=== PATIENT | female | born 1960 | race Caucasian/White ===

== ENCOUNTER → 2016-09-13 | Outpatient (CLI) | payer MEDICAID ==
--- NOTE | 2016-09-13 18:32 | RADIOLOGY REPORT (SQ) ---
EXAM DESCRIPTION: ANKLE LEFT COMPLETE COMPLETED DATE/TIME: 09/13/2016 6:17 pm REASON FOR STUDY: SPRAIN OF LEFT ANKLE,UNSPECIFIED LIGAMENT,SUBSEQUENT ENCOUNTER COMPARISON: None. NUMBER OF VIEWS: Three views. TECHNIQUE: AP, lateral, and oblique radiographic images acquired of the left ankle. LIMITATIONS: None. FINDINGS: MINERALIZATION: Normal. BONES: No acute fracture or dislocation. No worrisome bone lesions. JOINTS: No effusions. SOFT TISSUES: No soft tissue swelling. No foreign body. OTHER: No other significant finding. IMPRESSION: NEGATIVE STUDY OF THE LEFT ANKLE. NO RADIOGRAPHIC EVIDENCE OF ACUTE INJURY. TECHNICAL DOCUMENTATION: JOB ID: [id number] [employer]- All Rights Reserved
== END ==
LOC: RAD 17:58
PROVIDERS: ATTEND Nurse Practitioner Acute Care
DX: S93.402D Sprain of unspecified ligament of left ankle, subsequent encounter (principal); X58.XXXD Exposure to other specified factors, subsequent encounter

== ENCOUNTER 2018-03-27 11:32 | Emergency (ER) | payer SELFPAY ==
[2018-03-27 12:00] VITALS: BP 161/89
--- NOTE | 2018-03-27 12:01 | EKG REPORT ---
SEVERITY:- NORMAL ECG - SINUS RHYTHM : Confirmed by: Marquis Noe 27-Mar-2018 12:00:28
[2018-03-27] MEDS ORDERED: KETOROLAC TROMETHAMINE 60 MG/2 ML SDV IM ONE (12:14)
--- NOTE | 2018-03-27 12:25 | ER Document Report ---
ED General - General Chief Complaint: Chest Pain > 30 Stated Complaint: BODY ACHES, ARM NUMBNESS, BACK PAIN Time Seen by Provider: 03/27/18 12:06 Mode of Arrival: Ambulatory Information source: Patient Notes: Chief complaint: Left shoulder pain History of complain:( obtained from----patient) 58 years old female woke up this morning with left upper back left shoulder left arm pain and left side of the neck pain. Each time she moves her arm or shoulder the pain is increased in intensity. No nausea vomiting palpitation or diaphoresis. Onset: As above Duration: Since this morning Severity: Moderate Quality: Sharp Context: Possible sprain, she works in a cafeteria and lifting heavy objects Exacerbating factor and relieving factors: Change of position REVIEW OF SYSTEMS: CONSTITUTIONAL : Denies fever, chills, or sweats. Denies recent illness. EENT: Denies eye, ear, throat, or mouth pain or symptoms. Denies nasal or sinus congestion or discharge. Denies throat, tongue, or mouth swelling or difficulty swallowing. CARDIOVASCULAR: Denies chest pain. Denies palpitations or racing or irregular heart beat. Denies ankle edema. RESPIRATORY: Denies cough, cold, or chest congestion. Denies shortness of breath, difficulty breathing, or wheezing. GASTROINTESTINAL: Denies distention. Denies nausea, vomiting, or diarrhea. Denies blood in vomitus, stools, or per rectum. Denies black, tarry stools. Denies constipation. GENITOURINARY: Denies difficulty urinating, painful urination, burning, frequency, blood in urine, or discharge. FEMALE GENITOURINARY: Denies vaginal bleeding, heavy or abnormal periods, irregular periods. Denies vaginal discharge or odor. MUSCULOSKELETAL: Denies back or neck pain or stiffness. Denies joint pain or swelling. SKIN: Denies rash, lesions or sores. HEMATOLOGIC : Denies easy bruising or bleeding. LYMPHATIC: Denies swollen, enlarged glands. NEUROLOGICAL: Denies confusion or altered mental status. Denies passing out or loss of consciousness. Denies dizziness or lightheadedness. Denies headache. Denies weakness or paralysis or loss of use of either side. Denies problems with gait or speech. Denies sensory loss, numbness, or tingling. Denies seizures. PSYCHIATRIC: Denies anxiety or stress. Denies depression, suicidal ideation, or homicidal ideation. ALL OTHER SYSTEMS REVIEWED AND NEGATIVE. PHYSICAL EXAMINATION: GENERAL: Well-appearing, well-nourished and in no acute distress. Obesity HEAD: Atraumatic, normocephalic. EYES: Pupils equal round and reactive to light, extraocular movements intact, conjunctiva are normal. ENT: Nares patent, oropharynx clear without exudates. Moist mucous membranes. NECK: Normal range of motion, supple without lymphadenopathy LUNGS: Breath sounds clear to auscultation bilaterally and equal. No wheezes rales or rhonchi. HEART: Regular rate and rhythm without murmurs ABDOMEN: Soft, nontender, nondistended abdomen. No guarding, no rebound. No masses appreciated. Examination of genitals-deferred Musculoskeletal: Sharp tenderness over the trapezius muscles and left sternocleidomastoid muscles noted. NEUROLOGICAL: Cranial nerves grossly intact. Normal speech, normal gait. Normal sensory, motor exams PSYCH: Normal mood, normal affect. SKIN: Warm, Dry, normal turgor, no rashes or lesions noted. Dictation was performed using [employer] voice recognition software TRAVEL OUTSIDE OF THE [place] IN LAST 30 DAYS: No - HPI Onset: Just prior to arrival Notes: Dictated - Related Data Allergies/Adverse Reactions: No Known Allergies Allergy (Verified 03/27/18 12:05) Past Medical History - Social History Smoking Status: Never Smoker Cigarette use (# per day): No Chew tobacco use (# tins/day): No Smoking Education Provided: No Frequency of alcohol use: Rare Drug Abuse: None Lives with: Family - No Family History: Reviewed & Not Pertinent - Past Medical History Cardiac Medical History: Reports: Hx Hypertension Endocrine Medical History: Reports: Hx Hypothyroidism Psychiatric Medical History: Reports: Hx Depression Past Surgical History: Reports: Hx Orthopedic Surgery - lumbar - Immunizations Hx Diphtheria, Pertussis, Tetanus Vaccination: Yes Review of Systems - Review of Systems Notes: Dictated Physical Exam - Vital signs Vitals: Temp Pulse Resp BP Pulse Ox 98.5 F 75 16 161/89 H 100 03/27/18 11:56 03/27/18 11:56 03/27/18 11:56 03/27/18 11:56 03/27/18 11:56 - Notes Notes: Dictated Course - Re-evaluation Re-evalutation: 03/27/18 12:23 Given IM Toradol - Vital Signs Vital signs: Temp Pulse Resp BP Pulse Ox 98.5 F 75 16 161/89 H 100 03/27/18 11:56 03/27/18 11:56 03/27/18 11:56 03/27/18 11:56 03/27/18 11:56 Discharge - Discharge Clinical Impression: Trapezius strain Qualifiers: Encounter type: initial encounter Laterality: left Qualified Code(s): S46.812A - Strain of other muscles, fascia and tendons at shoulder and upper arm level, left arm, initial encounter Condition: Fair Disposition: HOME, SELF-CARE Instructions: Sprain ([facility]) Prescriptions: Diazepam [Valium 2 mg Tablet] 2 mg PO BID #15 tablet Naproxen Sodium [Naproxen Sodium ER] 500 mg PO BID #30 tablet.sa Forms: Return to Work Referrals: KUNAL MANDUJANO MD [Primary Care Provider] - Follow up as needed
== END 2018-03-27 12:35 | disposition home or self-care (01) ==
LOC: ER 11:32
DX: S29.012A Strain of muscle and tendon of back wall of thorax, initial encounter (principal); X58.XXXA Exposure to other specified factors, initial encounter; M54.89 Other dorsalgia; M25.512 Pain in left shoulder; M54.2 Cervicalgia; I10 Essential (primary) hypertension; M79.602 Pain in left arm; E66.9 Obesity, unspecified
CPT/HCPCS: 93005; 99283; 93010; J1885

== ENCOUNTER 2019-10-02 22:59 | Emergency (ER) | payer OTHER ==
--- NOTE | 2019-10-02 23:11 | ER Document Report ---
HPI - HPI Patient complains to provider of: Right foot Time Seen by Provider: 10/02/19 23:09 Onset: Just prior to arrival Associated Symptoms: None Notes: This 59-year-old female presents to the emergency room today stating that she tripped while drying out the lawnmower at her house today. She has discomfort to the right foot and right ankle. Past Medical History - General Information source: Patient - Social History Smoking Status: Never Smoker Cigarette use (# per day): No Chew tobacco use (# tins/day): No Smoking Education Provided: No Frequency of alcohol use: None Drug Abuse: None Family History: Reviewed & Not Pertinent - Past Medical History Cardiac Medical History: Reports: Hx Hypertension Endocrine Medical History: Reports: Hx Hypothyroidism Renal/ Medical History: Denies: Hx Peritoneal Dialysis Psychiatric Medical History: Reports: Hx Depression Past Surgical History: Reports: Hx Section, Hx Orthopedic Surgery - lumbar - Immunizations Hx Diphtheria, Pertussis, Tetanus Vaccination: Yes Vertical Provider Document - CONSTITUTIONAL Agree With Documented VS: Yes - INFECTION CONTROL TRAVEL OUTSIDE OF THE [place] IN LAST 30 DAYS: No - HEENT HEENT: Atraumatic, Conjuctival Injection, Normocephalic, PERRLA - NECK Neck: Normal Inspection - RESPIRATORY Respiratory: Breath Sounds Normal, No Respiratory Distress - CARDIOVASCULAR Cardiovascular: Regular Rate, Regular Rhythm - GI/ABDOMEN Gastrointestinal: Abdomen Soft, Abdomen Non-Tender - REPRODUCTIVE Female Genitalia: Normal Inspection - BACK Back: Normal Inspection - MUSCULOSKELETAL/EXTREMETIES Musculoskeletal/Extremeties: MAEW Course - Re-evaluation Re-evalutation: 10/02/19 23:49 Good distal pulses rapid capillary refill patient was placed in a splint for comfort and provided crutches for ambulation. - Vital Signs Vital signs: Temp Pulse Resp BP Pulse Ox 99.3 F 64 20 148/66 H 97 10/02/19 23:05 10/02/19 23:05 10/02/19 23:05 10/02/19 23:05 10/02/19 23:05 - Diagnostic Test Radiology results interpreted by me: 10/02/19 23:49 Ankle X-Ray 10/02/19 23:09 IMPRESSION: No acute fracture is identified. Foot X-Ray 10/02/19 23:09 IMPRESSION: No acute fracture or dislocation is identified. Procedures - Immobilization Right Ankle Immobilizer type: Ankle stirrup, Crutches Performed by: JOANNE Post-Proc Neuro Vasc Exam: Normal Alignment checked and good: Yes Discharge - Discharge Clinical Impression: Right foot strain Right ankle strain Qualifiers: Encounter type: initial encounter Qualified Code(s): S96.911A - Strain of unspecified muscle and tendon at ankle and foot level, right foot, initial encounter Disposition: HOME, SELF-CARE Instructions: Tendon Strain ([facility]), Sprained Ankle ([facility]) Additional Instructions: Ankle Stirrup Splint You are to use an ankle brace called a stirrup splint. This type of brace allows you to place greater stresses on the ankle without risk of re-injury, and is often used for more severe ankle injuries such as avulsion fractures and ligament ruptures. The splint can be worn over a sock or tape. For proper support, wear the splint with a shoe over it. It's important that the splint fit properly. Adjust the heel tension, if needed. If your splint has air bladders, peel back the bottom of each air bladder, then move the Velcro attachment of the heel strap up or down. Air bladder pressure can be adjusted by pulling up the valve at the top, threading the air tube down into the main bladder, then blowing air into the bladder or squeezing it out. The two sides of the stirrup can be moved forward or back on your ankle by changing the attachment of the main straps. If you are unable to use the ankle comfortably in the splint, return for re-evaluation. Prescriptions: Ibuprofen [Motrin 600 Mg Tablet] 600 mg PO TID #15 tablet Referrals: KUNAL MANDUJANO MD [Primary Care Provider] - Follow up as needed
--- NOTE | 2019-10-02 23:45 | RADIOLOGY REPORT (SQ) ---
EXAM DESCRIPTION: XR ANKLE 3 OR MORE VIEWS COMPLETED DATE/TME: 10/02/2019 23:09 CLINICAL HISTORY: 59 years Female ,pain COMPARISON: None. TECHNIQUE: Right ankle, 3 view FINDINGS: No acute fractures or dislocations are identified. No osseous destructive lesions. No ankle joint effusion noted. Large calcaneal spur. Spurring along the navicular. IMPRESSION: No acute fracture is identified.
--- NOTE | 2019-10-02 23:46 | RADIOLOGY REPORT (SQ) ---
EXAM DESCRIPTION: XR FOOT 3 OR MORE VIEWS COMPLETED DATE/TME: 10/02/2019 23:09 CLINICAL HISTORY: 59 years ,Female pain COMPARISON: None. TECHNIQUE: RIGHT foot, Three view FINDINGS: No acute fractures or dislocations are identified. No osseous destructive lesions. No radiopaque foreign object noted. No significant ankle effusion noted. IMPRESSION: No acute fracture or dislocation is identified.
[2019-10-03 00:19] VITALS: BP 134/70
== END 2019-10-03 00:17 | disposition home or self-care (01) ==
LOC: ER 22:59
PROC: 2W3QX1Z Immobilization of Right Lower Leg using Splint (ICD-10-PCS; principal; 2019-10-02)
DX: S96.911A Strain of unspecified muscle and tendon at ankle and foot level, right foot, initial encounter (principal); M79.671 Pain in right foot; W18.09XA Striking against other object with subsequent fall, initial encounter; Y93.H9 Activity, other involving exterior property and land maintenance, building and construction; I10 Essential (primary) hypertension
CPT/HCPCS: 99283

== ENCOUNTER 2020-05-15 12:27 | Emergency (ER) | payer OTHER ==
--- NOTE | 2020-05-15 12:45 | ER Document Report ---
ED Medical Screen (RME) - General Chief Complaint: Chest Pain Stated Complaint: CHEST PAIN/BACK PAIN/ARM PAIN Time Seen by Provider: 05/15/20 12:43 Primary Care Provider: KUNAL MANDUJANO MD [Primary Care Provider] - Follow up as needed Notes: HPI: 60-year-old female with history of hypertension high cholesterol and thyroid issues presenting for chest pain with radiation to the neck and arms over the last 2 to 3 days. Began with arm pain 3 days ago now with anterior chest pain and back pain. Reports shortness of breath with discomfort with deep breathing. Never had a stress test. PHYSICAL EXAMINATION: Lung sounds are clear to auscultation regular rate and rhythm. Patient is very anxious I have greeted and performed a rapid initial assessment of this patient. A comprehensive ED assessment and evaluation of the patient, analysis of test results and completion of medical decision making process will be conducted by an additional ED providers. Please note that clinical decision making for this patient was made during the 2019 pandemic of novel coronavirus which caused a significant strain on the healthcare system including at this particular facility. Criteria for admission discharge and level of care decisions as well as treatment decisions have necessarily changed - Related Data Allergies/Adverse Reactions: No Known Allergies Allergy (Verified 10/02/19 23:08) Past Medical History - Social History Frequency of alcohol use: None Drug Abuse: None - Past Medical History Cardiac Medical History: Reports: Hx Hypertension Endocrine Medical History: Reports: Hx Hypothyroidism Renal/ Medical History: Denies: Hx Peritoneal Dialysis Psychiatric Medical History: Reports: Hx Depression Past Surgical History: Reports: Hx Section, Hx Orthopedic Surgery - lumbar - Immunizations Hx Diphtheria, Pertussis, Tetanus Vaccination: Yes Doctor's Discharge - Discharge Referrals: KUNAL MANDUJANO MD [Primary Care Provider] - Follow up as needed
[2020-05-15 13:04] LABS: ABSOLUTE BASOPHILS # (AUTO) 0.1 10^3/uL (0.0-0.2); ABSOLUTE EOSINOPHILS # (AUTO) 0.1 10^3/uL (0.0-0.6); ABSOLUTE LYMPHOCYTES (AUTO) 1.6 10^3/uL (0.5-4.7); ABSOLUTE MONOCYTES (AUTO) 0.4 10^3/uL (0.1-1.4); ABSOLUTE NEUT (AUTO) 2.8 10^3/uL (1.7-8.2); BASOPHILS % (AUTO) 1.1 % (0-2); HEMATOCRIT 40.7 % (36.0-47.0); HEMOGLOBIN 13.9 g/dL (12.0-15.5); LYMPHOCYTES % (AUTO) 32.4 % (13-45); MEAN CORPUSCULAR HEMOGLOBIN 30.5 pg (27.0-33.4); MEAN CORPUSCULAR HGB CONC 34.1 g/dL (32.0-36.0); MEAN CORPUSCULAR VOLUME 90 fl (80-97); MONOCYTES % (AUTO) 7.4 % (3-13); PLATELET COUNT 187 10^3/uL (150-450); RED BLOOD COUNT 4.55 10^6/uL (3.72-5.28); RED CELL DISTRIBUTION WIDTH 12.7 % (11.5-14.0); SEGMENTED NEUTROPHILS % (AUTO) 56.1 % (42-78); TOTAL CELLS COUNTED % (AUTO) 100 %
[2020-05-15 13:13] LABS: INTERNATIONAL RATION (INR) 0.86; PROTHROMBIN TIME 11.9 SEC (11.4-15.4)
[2020-05-15 13:21] LABS: ALBUMIN 3.7 g/dL (3.5-5.0); ALKALINE PHOSPHATASE 34 U/L (38-126); ANION GAP 5 (5-19); ASPARTATE AMINO TRANSFERASE 21 U/L (14-36); BILIRUBIN,DIRECT 0.2 mg/dL (0.0-0.4); BILIRUBIN,TOTAL 0.6 mg/dL (0.2-1.3); BLOOD UREA NITROGEN 17 mg/dL (7-20); CARBON DIOXIDE 34 mmol/L (22-30); CHLORIDE 102 mmol/L (98-107); GLUCOSE 112 mg/dL (75-110); POTASSIUM 3.7 mmol/L (3.6-5.0); TOTAL PROTEIN 6.5 g/dL (6.3-8.2)
--- NOTE | 2020-05-15 13:56 | ER Document Report ---
ED General - General Chief Complaint: Chest Pain Stated Complaint: CHEST PAIN/BACK PAIN/ARM PAIN Time Seen by Provider: 05/15/20 12:43 Primary Care Provider: KUNAL MANDUJANO MD [ACTIVE STAFF] - Follow up as needed BEVERLY FERGUSON MD [ACTIVE PROVISIONAL STAFF] - Follow up as needed - [facility] Notes: 61-year-old female with a history of hypertension, hyperlipidemia and hypothyroidism presents to the emergency room today for complaints of bilateral chest pain that started 2 nights ago, neck pain, back pain that radiated to her left arm. Patient reports shortness of breath with deep breathing. 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 She reports the pain is worse with movement, better at rest. Has not tried any [id number] medications for her pain. Patient has a history of arthritis and trigger finger in her bilateral hands. She typically does get cortisone shots every 3 months but having last year due to [place] pandemic. Patient is a been on smoker, she states she was a former smoker years ago. Mother has a history of DC with triple bypass 9 years ago, father did pass from dementia no cardiac issues. Patient reports pain was worse this morning. States it is a dull throbbing pain. Has not tried any heat, ice, ibuprofen or Tylenol. Denies fevers, chills, palpitations, shortness of breath, dyspnea, nausea, vomiting, diarrhea, abdominal pain, hematuria,blurred vision, double vision, loss of vision, speech changes, LH, dizziness, syncope, headaches, wheezing, ST, URI, neck pain, weakness, bowel or bladder dysfunction, saddle anesthesia, numbness or tingling in bilateral upper or lower extremities equally, muscle paralysis, weakness in bilateral upper or lower extremities equally or rash. Denies IV drug use. - Related Data Allergies/Adverse Reactions: No Known Allergies Allergy (Verified 10/02/19 23:08) Past Medical History - General Information source: Patient - Social History Smoking Status: Former Smoker Frequency of alcohol use: None Drug Abuse: None Family History: Reviewed & Not Pertinent - Past Medical History Cardiac Medical History: Reports: Hx Hypertension Endocrine Medical History: Reports: Hx Hypothyroidism Renal/ Medical History: Denies: Hx Peritoneal Dialysis Psychiatric Medical History: Reports: Hx Depression Past Surgical History: Reports: Hx Section, Hx Orthopedic Surgery - lumbar - Immunizations Hx Diphtheria, Pertussis, Tetanus Vaccination: Yes Review of Systems - Review of Systems Constitutional: No symptoms reported EENT: No symptoms reported Cardiovascular: Chest pain Respiratory: No symptoms reported Gastrointestinal: No symptoms reported Genitourinary: No symptoms reported Female Genitourinary: No symptoms reported Musculoskeletal: Muscle pain, Muscle stiffness Skin: No symptoms reported Hematologic/Lymphatic: No symptoms reported Neurological/Psychological: No symptoms reported Physical Exam - Vital signs Vitals: Temp Pulse Resp BP Pulse Ox 98.3 F 64 20 150/66 H 100 05/15/20 12:38 05/15/20 12:38 05/15/20 12:38 05/15/20 12:38 05/15/20 12:38 - Notes Notes: MEDICATIONS: I agree with the patient medications as charted by the RN. ALLERGIES: I agree with the allergies as charted by the RN. PAST MEDICAL HISTORY/PAST SURGICAL HISTORY: Reviewed and agree as charted by RN. SOCIAL HISTORY: Reviewed and agree as charted by RN. FAMILY HISTORY: No significant familial comorbid conditions directly related to patient complaint EXAM: Reviewed vital signs as charted by RN. PHYSICAL EXAMINATION: reviewed vital signs by RN GENERAL: Well-appearing, well-nourished and in no acute distress. HEAD: Atraumatic, normocephalic. EYES: Pupils equal round and reactive to light, extraocular movements intact, conjunctiva are normal. ENT: Nares patent, oropharynx clear without exudates. Moist mucous membranes. NECK: Normal range of motion, supple without lymphadenopathy. Left-sided trapezius pain on palpation. LUNGS: Breath sounds clear to auscultation bilaterally and equal. No wheezes rales or rhonchi. HEART: Regular rate and rhythm without murmurs. Able to reproduce chest pain on palpation not brought patient to the emergency room. ABDOMEN: Soft, nontender, nondistended abdomen. No guarding, no rebound. No masses appreciated. Female : deferred Musculoskeletal: Normal range of motion, no pitting or edema. No cyanosis. NEUROLOGICAL: Cranial nerves grossly intact. Normal speech, normal gait. Normal sensory, motor exams PSYCH: Normal mood, normal affect. SKIN: Warm, Dry, normal turgor, no rashes or lesions noted. Course - Re-evaluation Re-evalutation: 05/15/20 15:42 Afebrile, vital stable no distress. Nurses notes reviewed. CBC negative for leukocytosis or anemia. CMP negative for hepatic or renal dysfunction, no electrolyte disturbances. Troponin less than 0.012. Chest x-ray unremarkable. I was able to reproduce the chest pain that brought patient to the emergency ro om. Patient states that she has been heavy lifting a lot of heavy objects while at work, she is right-hand dominant so she typically carries in her left and does tasks with her right. When palpating her neck and her left arm, patient grimacing with pain and wincing. She did confirm that this is the pain that she was experiencing. Reports that her did pass away 10 months ago suddenly, her family was nervous and they did want to have her evaluated for her cardiac work-up. Patient reports she is never had a stress test. Presentation of chest pain in an otherwise well appearing patient. Low clinical suspicion for ACS given clinical history, exam, EKG without ST elevations or depressions, and negative initial troponin. second troponin was less than 0.012 HEART score less than or equal to 3. PE also seems unlikely given clinical history, absence of tachycardia or dyspnea. Patient is PERC criteria negative. CXR without evidence of pneumothorax or pneumonia. No widened mediastinum. Aortic dissection also seems unlikely given history, symmetric pulses, CXR, and vitals. HEART Score: History; pain worse with movement, after lifting heavy objects, reproducible pain on palpation of chest wall, left arm and neck. 0 ECG; negative for STEMI, no ST segment elevations 0 Age; she does get +1 for her age Risk Factors: Pretension, hyperlipidemia, obesity, family with CVD, +2 Troponin: negative Total: 3 Patient with a score of 3 has a 0.9 to 1.7% risk of adverse cardiac event. Patient has acute costochondritis. Advised to use muscle relaxers and anti- inflammatories as directed. Apply heat 20 minutes on 20 minutes off several times a day. Work note has been given. Advised to avoid lifting heavy objects. Follow-up with primary care provider within the next week, referral has been given to hunter as needed. After performing a Medical Screening Examination, I estimate there is LOW risk for RUPTURED ESOPHAGUS, PNEUMOTHORAX, PULMONARY EMBOLISM, ACUTE CORONARY SYNDROME, OR THORACIC AORTIC DISSECTION, thus I consider the discharge disposition reasonable. I have reevaluated this patient multiple times and no significant life threatening changes are noted. The patient and I have discussed the diagnosis and risks, and we agree with discharging home with close follow-up. We also discussed returning to the Emergency Department immediately if new or worsening symptoms occur. We have discussed the symptoms which are most concerning (e.g., bloody sputum, worsening pain or shortness of breath) that necessitate immediate return. 05/15/20 17:56 - Vital Signs Vital signs: Temp Pulse Resp BP Pulse Ox 98.3 F 64 16 136/73 H 96 05/15/20 12:38 05/15/20 12:38 05/15/20 16:01 05/15/20 16:01 05/15/20 16:01 - Laboratory Results Result Diagrams: 05/15/20 12:45 05/15/20 12:45 Laboratory Results Interpreted: 05/15/20 12:45 Carbon Dioxide 34 H Glucose 112 H Alkaline Phosphatase 34 L Critical Laboratory Results Reviewed: No Critical Results - Radiology Results Critical Radiology Results Reviewed: No Critical Results Discharge - Discharge Clinical Impression: Acute costochondritis Condition: Stable Disposition: HOME, SELF-CARE Instructions: Chest Wall Pain ([facility]), Costochondritis ([facility]) Additional Instructions: Both of your troponins today were negative, he been having chest pain over the last 3 days. I was able to reproduce it with palpation of your chest wall as well as your neck and your arm. I do believe this is from you lifting heavy objects while you are at work. I did prescribe you muscle relaxers as well as anti-inflammatories. Advised apply heat 20 minutes on 20 minutes off several times a day. I have given you a work note to be out of work for the next couple of days, please make sure you rest, stay hydrated with water, avoid any sodas or coffees this is can dehydrate you. Make sure you are moving around so you do not have any contractures. If you have persistent pain, it is advised that you do follow-up with your primary care provider. I also did refer you to a hunter if you do have chest pain that lingers after taking your med ication. Return immediately for any new or worsening symptoms. Follow up with primary care provider, call tomorrow to make followup appointment. Prescriptions: Naproxen 500 mg PO BID #10 tablet Methocarbamol [Robaxin 500 mg Tablet] 500 mg PO QID PRN #15 tablet PRN Reason: Forms: Return to Work Referrals: KUNAL MANDUJANO MD [ACTIVE STAFF] - Follow up as needed BEVERLY FERGUSON MD [ACTIVE PROVISIONAL STAFF] - Follow up as needed
--- NOTE | 2020-05-15 14:41 | RADIOLOGY REPORT (SQ) ---
EXAM DESCRIPTION: CHEST SINGLE VIEW IMAGES COMPLETED DATE/TIME: 05/15/2020 1:17 pm REASON FOR STUDY: chest pain. COMPARISON: None. EXAM PARAMETERS: NUMBER OF VIEWS: One view. TECHNIQUE: Single frontal radiographic view of the chest acquired. RADIATION DOSE: NA LIMITATIONS: None. FINDINGS: LUNGS AND PLEURA: No opacities, masses or pneumothorax. No pleural effusion. MEDIASTINUM AND HILAR STRUCTURES: No masses. Contour normal. HEART AND VASCULAR STRUCTURES: Heart normal in size. Normal vasculature. BONES: No acute findings. HARDWARE: None in the chest. OTHER: No other significant finding. IMPRESSION: NO ACUTE RADIOGRAPHIC FINDING IN THE CHEST. TECHNICAL DOCUMENTATION: JOB ID: [id number] [employer]- All Rights Reserved Reading location - IP/workstation name: [email or web address]
[2020-05-15] MEDS ORDERED: IBUPROFEN 800 MG TABLET PO ONE (15:46)
[2020-05-15 18:04] VITALS: BP 145/73
--- NOTE | 2020-05-15 22:42 | EKG REPORT ---
SEVERITY:- ABNORMAL ECG - SINUS RHYTHM PROBABLE LVH WITH SECONDARY REPOL ABNRM : Confirmed by: Ben Salmeron MD 15-May-2020 22:41:51
--- OUTSIDE RECORDS SUMMARY | 2020-05-18 10:27 | XMS REPORT ---
:1960 [facility] [address] [place] [address] Care Team Providers Name Role Phone Elizabeth BUCHANAN Attending Clinician Unavailable Aaron Attending Clinician Unavailable Sacha Attending Clinician Unavailable Jan Pelayo Attending Clinician Unavailable Allergies, Adverse Reactions, Alerts Allergy Allergy Status Severity Reaction(s) Onset Inactive Treating C omments Name Type Date Date Clinician LATEX Drug Active U Rash 2017-04 allergy 00:00:0 0 Medications Ordered Filled Start Stop Current Ordering Indication Dosage Frequency Signature Comments Components Medication Medication Date Date Medication? Clinician (SIG) Name Name atenolol 50 No 1 Q1D atenolol mg tablet 50 mg Take 1 tablet tablet Take 1 every day tablet by oral every day route. by oral route. hydrochloro No 1 Q1D hydrochlor thiazide 25 othiazide mg tablet 25 mg Take 1 tablet tablet Take 1 every day tablet by oral every day route. by oral route. ibuprofen No 1 TID ibuprofen 800 mg 800 mg tablet Take tablet 1 tablet 3 Take 1 times a day tablet 3 by oral times a route as day by needed. oral route as needed. Pain Relief No 2 Q4H Pain (acetaminop Relief hen) 500 mg (acetamino tablet Take phen) 500 2 tablets mg tablet every 4 Take 2 hours by tablets oral route every 4 as needed. hours by oral route as needed. Synthroid No Synthroid 150 mcg 150 mcg tablet Take tablet 1 tablet(s) Take 1 every day tablet(s) by oral every day route. by oral route. Zanaflex 4 No 1capsul TID Zanaflex 4 mg capsule e(s) mg capsule Take 1 Take 1 capsule 3 capsule 3 times a day times a by oral day by route as oral route needed. as needed. Zoloft 100 No 1 Q1D Zoloft 100 mg tablet mg tablet Take 1 Take 1 tablet tablet every day every day by oral by oral route. route. celecoxib No 1capsul BID celecoxib 200 mg e(s) 200 mg capsule capsule Take 1 Take 1 capsule capsule twice a day twice a by oral day by route for oral route 30 days. for 30 days. levothyroxi No levothyrox ne 150 mcg ine 150 tablet Take mcg tablet 1 tablet(s) Take 1 every day tablet(s) by oral every day route. by oral route. pravastatin No 1 Q1D pravastati 20 mg n 20 mg tablet Take tablet 1 tablet Take 1 every day tablet by oral every day route for by oral 30 days. route for 30 days. sertraline No sertraline 100 mg 100 mg tablet Take tablet 1 tablet Take 1 every day tablet by oral every day route. by oral route. Problems Condition Condition Condition Status Onset Resolution Last Treatin g Comments Name Details Category Date Date Treatment Clinician Date Hypothyroid Hypothyroid Problem Active ism ism Procedures Procedure Date / Time Performed Performing Clinician Devic e OFFICE/OUTPATIENT VISIT EST 2019-02-03 09:15:00 OFFICE/OUTPATIENT VISIT EST 2017-09-18 10:25:00 OFFICE/OUTPATIENT VISIT EST 2017-08-21 14:30:00 Hand Surgery 2016-11-21 00:00:00 OFFICE/OUTPATIENT VISIT EST 2016-11-02 09:30:00 Lumbar Spine Surgery 2001-04-23 00:00:00 Section 1999-04-23 00:00:00 Results Test Description Test Time Test Comments Text Results Atomic Results Result Comments SARS-CoV-2 RNA Resp Ql SHAE+probe 2020-02-06 00:00:00 Test Item Value Reference Range Comments SARS-CoV-2 RNA Resp Ql SHAE+probe Not detected [facility] Case ID: (test code = 29792-2) [id number] Rapid Strep\S\2019-06-02 15:50:00 Test Item Value Reference Range Comments Rapid Strep (test code = RAPIDSTREP) positive N/A CBC (H/H, RBC, INDICES, WBC, PLT)2019-02-03 09:57:00 Test Item Value Reference Range Comments MPV (test code = 69616544) 10.8 fL 7.5-12.5 RED BLOOD CELL COUNT (test code = 95727920) 4.72 Million/uL 3.80 -5.10 RDW (test code = 32021154) 12.1 % 11.0-15.0 MCH (test code = 34997434) 30.1 pg 27.0-33.0 HEMOGLOBIN (test code = 59865280) 14.2 g/dL 11.7-15.5 WHITE BLOOD CELL COUNT (test code = 3.6 Thousand/uL 3.8-10.8 60843078) HEMATOCRIT (test code = 74685905) 42.7 % 35.0-45.0 PLATELET COUNT (test code = 54060324) 153 Thousand/uL 140-400 MCV (test code = 15286583) 90.5 fL 80.0-100.0 MCHC (test code = 58760707) 33.3 g/dL 32.0-36.0 HEPATIC FUNCTION [id number] 09:57:00 Test Item Value Reference Range Comments ALBUMIN/GLOBULIN RATIO (test code = 1.7 (calc) 1.0-2.5 66172752) AST (test code = 04691850) 27 U/L 10-35 PROTEIN, TOTAL (test code = 52316911) 6.7 g/dL 6.1-8.1 ALT (test code = 52105238) 37 U/L 6-29 BILIRUBIN, INDIRECT (test code = 82079095) 0.3 mg/dL (calc) 0.2- 1.2 GLOBULIN (test code = 30081228) 2.5 g/dL (calc) 1.9-3.7 BILIRUBIN, DIRECT (test code = 54896716) 0.1 mg/dL < OR = 0.2 BILIRUBIN, TOTAL (test code = 73573645) 0.4 mg/dL 0.2-1.2 ALBUMIN (test code = 04877241) 4.2 g/dL 3.6-5.1 ALKALINE PHOSPHATASE (test code = 89501994) 46 U/L 33-1 30 HEMOGLOBIN A1c WITH [id number] 09:57:00 Test Item Value Reference Range Comments HEMOGLOBIN A1c (test code = 05834805) 5.3 % of total Hgb <5.7 eAG (mmol/L) (test code = 88584116) 5.8 (calc) eAG (mg/dL) (test code = 92179351) 105 (calc) COMPREHENSIVE METABOLIC [id number] 09:57:00 Test Item Value Reference Range Comments SODIUM (test code = 09125600) 141 mmol/L 135-146 CHLORIDE (test code = 55847428) 104 mmol/L 98-110 eGFR NON-AFR. URUGUAYAN (test code = 99 mL/min/1.73m2 > OR = 60 46003083) ALBUMIN (test code = 36822360) 4.2 g/dL 3.6-5.1 PROTEIN, TOTAL (test code = 73923563) 6.7 g/dL 6.1-8.1 UREA NITROGEN (BUN) (test code = 10 mg/dL 7-25 50943503) BILIRUBIN, TOTAL (test code = 0.4 mg/dL 0.2-1.2 35273740) eGFR (test code = 115 mL/min/1.73m2 > OR = 60 94841789) CREATININE (test code = 49711511) 0.65 mg/dL 0.50-1.05 POTASSIUM (test code = 51140410) 4.0 mmol/L 3.5-5.3 AST (test code = 20076761) 27 U/L 10-35 GLOBULIN (test code = 75994041) 2.5 g/dL (calc) 1.9-3.7 CALCIUM (test code = 20192816) 9.0 mg/dL 8.6-10.4 CARBON DIOXIDE (test code = 47926435) 30 mmol/L 20-32 ALBUMIN/GLOBULIN RATIO (test code = 1.7 (calc) 1.0-2.5 29433413) ALT (test code = 55522691) 37 U/L 6-29 GLUCOSE (test code = 87576962) 91 mg/dL 65-99 BUN/CREATININE RATIO (test code = NOT APPLICABLE (calc) 6-22 33545312) ALKALINE PHOSPHATASE (test code = 46 U/L 33-130 25572357) LIPID PANEL, [id number] 09:57:00 Test Item Value Reference Range Comments CHOL/HDLC RATIO (test code = 01988926) 4.9 (calc) <5.0 TRIGLYCERIDES (test code = 00979053) 120 mg/dL <150 NON HDL CHOLESTEROL (test code = 60615406) 165 mg/dL (calc) <130 CHOLESTEROL, TOTAL (test code = 36663295) 207 mg/dL <200 HDL CHOLESTEROL (test code = 04127935) 42 mg/dL >50 LDL-CHOLESTEROL (test code = 51205057) 141 mg/dL (calc) HEMOGLOBIN A1c WITH [id number] 15:04:00 Test Item Value Reference Range Comments eAG (mmol/L) (test code = 84874643) 5.8 (calc) eAG (mg/dL) (test code = 86186169) 105 (calc) HEMOGLOBIN A1c (test code = 77734890) 5.3 % of total Hgb <5.7 VITAMIN D,25-OH,TOTAL,[id number] 15:04:0025VITAMIN [id number] 15:04:84791 Rapid Strep\S\2017-01-22 12:35:00 Test Item Value Reference Range Comments Rapid Strep (test code = RAPIDSTREP) negative N/A Hepatitis C Ab w/ Reflex HCVRNA,[id number] 10:19:00 Test Item Value Reference Range Comments Hepatitis C Antibody (test code = 447732) NEGATIVE NEGATI VE Vitamin D, 25-Hydroxy, [id number] 10:19:00 Test Item Value Reference Range Comments Vitamin D (25-Hydroxy) (test code = 008956) 28 ng/mL 30-1 00 CMP with Estimated [id number] 10:19:00 Test Item Value Reference Range Comments BUN (test code = 748373) 16 mg/dL 7-25 ALT/SGPT (test code = 027403) 12 U/L 6-29 Est GFR, NonAfrican Fijian (test code = 525514) 86 mL/min >=60 Total Protein (test code = 660315) 6.6 g/dL 6.1-8.1 Potassium (test code = 436275) 4.0 mmol/L 3.5-5.3 Calcium (test code = 538122) 9.2 mg/dL 8.6-10.4 Creatinine (test code = 776227) 0.78 mg/dL 0.50-1.05 Sodium (test code = 708663) 142 mmol/L 135-146 Glucose (test code = 349534) 102 mg/dL 65-99 Bilirubin, Total (test code = 519966) 0.7 mg/dL 0.2-1.2 Alkaline Phosphatase (test code = 670882) 46 U/L 33-130 Albumin (test code = 675979) 3.8 g/dL 3.6-5.1 AST/SGOT (test code = 074329) 17 U/L 10-35 Est GFR, (test code = 966139) >89 mL/min > =60 Chloride (test code = 306473) 104 mmol/L 98-110 CO2 (test code = 569018) 25 mmol/L 20-31 Lipid [id number] 10:19:00 Test Item Value Reference Range Comments VLDL Cholesterol (Calc) (test code = 094651) 19 mg/dL <30 Triglycerides (test code = 446566) 93 mg/dL <150 Total Chol/HDL Ratio (test code = 614488) 3.6 Ratio <=5.0 Cholesterol (test code = 003493) 166 mg/dL 125-200 LDL Cholesterol (Calc) (test code = 608751) 101 mg/dL <130 HDL Cholesterol (test code = 016676) 46 mg/dL >=46 Hemoglobin A1C\S\2016-05-18 15:45:00 Test Item Value Reference Range Comments HgbA1C, Fingerstick (test code = 4548-4) 5.2 % 4-5.6 Lipid [id number] 09:00:00 Test Item Value Reference Range Comments Total Chol/HDL Ratio (test code = 398016) 3.6 Ratio <=5.0 LDL Cholesterol (Calc) (test code = 170933) 85 mg/dL <130 Cholesterol (test code = 215796) 157 mg/dL 125-200 Triglyceride (test code = 295813) 142 mg/dL <150 VLDL Cholesterol (Calc) (test code = 237913) 28 mg/dL <30 HDL Cholesterol (test code = 110245) 44 mg/dL >=46 Vitamin D, 25-Hydroxy, [id number] 09:00:00 Test Item Value Reference Range Comments Vitamin D (25-Hydroxy) (test code = 650560) 21 ng/mL 30-1 00 CMP with Estimated [id number] 09:00:00 Test Item Value Reference Range Comments ALT/SGPT (test code = 564540) 12 U/L 6-29 Est GFR, NonAfrican Fijian (test code = 257623) >89 mL/min >=60 BUN (test code = 879199) 12 mg/dL 7-25 Chloride (test code = 376243) 102 mmol/L 98-110 Sodium (test code = 671263) 141 mmol/L 135-146 Est GFR, (test code = 801519) >89 mL/min > =60 Albumin (test code = 604901) 3.9 g/dL 3.6-5.1 Bilirubin, Total (test code = 477864) 0.5 mg/dL 0.2-1.2 Creatinine (test code = 397034) 0.72 mg/dL 0.50-1.05 Calcium (test code = 809493) 9.2 mg/dL 8.6-10.4 AST/SGOT (test code = 484985) 13 U/L 10-35 Potassium (test code = 723972) 3.4 mmol/L 3.5-5.3 Total Protein (test code = 520647) 6.3 g/dL 6.1-8.1 Glucose (test code = 233429) 106 mg/dL 65-99 CO2 (test code = 818682) 33 mmol/L 20-31 Alkaline Phosphatase (test code = 955522) 52 U/L 33-130 Rapid Strep\S\2016-04-27 15:15:00 Test Item Value Reference Range Comments Rapid Strep (test code = RAPIDSTREP) negative N/A Assessments Condition Name Status Diagnosis Date Treating Clinici an Hypothyroidism Active 2019-11-04 14:31:22 Body mass index 40+ - severely obese Active 2019-11-07 13:58:58 Trigger finger, unspecified finger Active Essential (primary) hypertension Active Acute upper respiratory infection, Active unspecified Mixed hyperlipidemia Active Hypothyroidism Active 2018-11-01 14:45:55 Body mass index 40+ - severely obese Active 2018-11-01 14:56:35 Acute upper respiratory infection, Active unspecified Acute pharyngitis, unspecified Active Contact w and exposure to oth bact Active communicable diseases Body mass index (BMI) 40.0-44.9, adult Active Vitamin D deficiency, unspecified Active Trigger finger, right ring finger Active Carpal tunnel syndrome, bilateral upper Active limbs Lesion of ulnar nerve, unspecified Active upper limb Essential (primary) hypertension Active Mixed hyperlipidemia Active Vitamin D deficiency, unspecified Active Dorsalgia, unspecified Active Encounters Start End Encounter Admission Attending Care Care Encounter Date/Time Date/Time Type Type Clinicians Facility Department ID 2019-11-07 2019-11-07 Outpatient ANURADHA [facility] [id number] 16:23:00 16:23:00 RADHA 38 2019-11-07 2019-11-07 Radha [place] [id number] 00:00:00 00:00:00 Chanel [facility], [id number] PA-C: [address], [place] [address], Ph. 2019-02-03 2019-02-03 Outpatient Aaron [facility] [id number] 09:15:00 09:15:00 Stormy Children [id number] s [id number] and [id number] [facility], 2018-11-01 2018-11-01 Outpatient YOU BUCHANAN [facility] [id number] 16:23:00 16:23:00 RADHA 26 2018-11-01 2018-11-01 Radha Elizabeth Ewa [place] [id number] 00:00:00 00:00:00 Chanel [facility], [id number] PA-C: [address], [place] [address], Ph. 2017-09-18 2017-09-18 Outpatient Sacha [facility] 12 [id number] 10:25:00 10:25:00 Ofelia Children [id number] s [id number] and [id number] [facility], YISEL 2017-08-21 2017-08-21 [facility] Jan [facility] [id number] 14:30:00 14:30:00 Pierce, Children [id number] Anam s [id number] and [id number] [facility], YISEL 2017-07-20 2017-07-20 Outpatient YOU BUCHANAN [facility] [id number] 18:15:00 18:15:00 RADHA Wheeler 2016-11-02 2016-11-02 Outpatient Jan [facility] [id number] 09:30:00 09:30:00 Katherine Pelayo [id number] Anam mae [id number] and [id number] [facility] Plan of Treatment Planned Activity Planned Date Details Comments Future Appointment 2020-11-09 14:00:00 Radha Buchanan, [address] [facility]; [facility], [place] [address] Social History Smoking Status Start Date Stop Date Former Smoker Vital Signs Vital Name Observation Time Observation Value Comments BMI (Body Mass Index) 2019-11-07 00:00:00 44 kg/m2 BP Systolic 2019-11-07 00:00:00 153 mm[Hg] Body Weight 2019-11-07 00:00:00 260.2 [lb_av] BP Diastolic 2019-11-07 00:00:00 74 mm[Hg] Height 2019-11-07 00:00:00 64.5 [in_i] BP Diastolic 2018-11-01 00:00:00 65 mm[Hg] Height 2018-11-01 00:00:00 64.5 [in_i] BMI (Body Mass Index) 2018-11-01 00:00:00 42.5 kg/m2 BP Systolic 2018-11-01 00:00:00 136 mm[Hg] Body Weight 2018-11-01 00:00:00 251.2 [lb_av] Hospital Discharge Instructions 1. Hypothyroidism TSH, serum or plasma T4, free, serum 2. Body mass index 40+ - severely obese Discussion Note: None recorded. Patient educational handouts: No information available.1. Hypothyroidism TSH, serum or plasma 2. Body mass index 40+ - severely obese eating healthy foods: care instructions Discussion Note: None recorded.
== END 2020-05-15 17:50 | disposition home or self-care (01) ==
LOC: ER 12:27
DX: M94.0 Chondrocostal junction syndrome [Tietze] (principal); R07.9 Chest pain, unspecified; M54.9 Dorsalgia, unspecified; M79.602 Pain in left arm; M79.601 Pain in right arm; R06.02 Shortness of breath; E78.00 Pure hypercholesterolemia, unspecified; I10 Essential (primary) hypertension
CPT/HCPCS: 36415; 71045; 80053; 84484; 85025; 85610; 93005; 93010; 99285